=== PATIENT | male | born 1995 | race Caucasian/White ===

== ENCOUNTER 2018-08-22 23:40 | Emergency (ER) | payer OTHER ==
[2018-08-22 23:47] VITALS: BP 119/74
== END 2018-08-23 00:55 | disposition left against medical advice (07) ==
LOC: ED 23:40
DX: S61.219A Laceration without foreign body of unspecified finger without damage to nail, initial encounter (principal); X58.XXXA Exposure to other specified factors, initial encounter; Y92.9 Unspecified place or not applicable; Z53.21 Procedure and treatment not carried out due to patient leaving prior to being seen by health care provider
CPT/HCPCS: 99281